=== PATIENT | male | born 1965 | race Caucasian/White ===

== ENCOUNTER 2017-05-11 10:41 | Inpatient (IN) | payer BC ==
[2017-05-11 11:35] LABS: #Eosinphils 0.1 thou/uL (0.0-0.7); #Lymphocytes 2.1 thou/uL (1.20-3.40); #Neutrophils 12.7 thou/uL (1.40-6.50); %Basophils 0.3 % (0.0-1.0); %Eosinophils 0.6 % (0.0-10.0); %Lymphocytes 13.1 % (21.0-51.0); %Monocytes 6.5 % (0.0-10.0); Hematocrit 54.4 % (42.0-52.0); Mean Platelet Volume 8.1 fL (7.4-10.4); Red Blood Cell (RBC) Count 6.12 mill/uL (4.70-6.10); White Blood Cell (WBC) Count 15.9 thou/uL (4.8-10.8)
[2017-05-11 11:41] LABS: Prothrombin Time 13.2 SEC (12.0-14.7)
[2017-05-11 11:57] LABS: ALT (SGPT) 26 U/L (8-55); AST (SGOT) 18 U/L (5-34); Alkaline Phosphatase 106 U/L (40-150); Anion Gap 16 mmol/L (10-20); BUN (Urea Nitrogen) 15 mg/dL (8.4-25.7); Bilirubin, Total 0.7 mg/dL (0.2-1.2); Calc. Creatinine Clearance 0 mL/min (70-130); Calcium 9.7 mg/dL (7.8-10.44); Carbon Dioxide 22 mmol/L (22-29); Chloride 96 mmol/L (98-107); Estimated GFR-MDRD Greater than 90; Globulin 3.7 g/dL (2.4-3.5); Protein, Total 7.6 g/dL (6.0-8.3)
[2017-05-11] MEDS ORDERED: Morphine 4 MG/ML VIAL ONE (12:36)
[2017-05-11] MEDS ORDERED: Water For Inject, Bacteriostat 30 ML ONE (12:36)
[2017-05-11] MEDS ORDERED: methylPREDNISolone Sod Succ/PF 125 MG/2 ML VIAL ONE (12:36)
[2017-05-11] MEDS ORDERED: metroNIDAZOLE 500 MG/100 ML BAG ONE (12:40)
[2017-05-11] MEDS ORDERED: Ondansetron HCl/PF 4 MG/2 ML Vial ONE (12:50)
[2017-05-11] MEDS ORDERED: Ondansetron HCl/PF 4 MG/2 ML Vial IVP PRN (13:46)
[2017-05-11] MEDS ORDERED: Ondansetron ODT 4 MG TAB PO PRN (13:47)
[2017-05-11] MEDS ORDERED: Acetaminophen 325 MG TAB PO PRN (13:47)
[2017-05-11] MEDS ORDERED: Sodium Chloride 0.9% 1,000 ML IV SCH (14:00)
--- NOTE | 2017-05-11 15:41 | CT ---
CT ABDOMEN AND PELVIS WITH IV CONTRAST 05/11/17 HISTORY: Diffuse abdominal pain and palpable skin rash. Symptoms have been present for four days. Patient also reports joint swelling and joint pain. FINDINGS: The lung bases, liver, spleen, pancreas, bilateral adrenal glands, left kidney, and partially distend ed urinary bladder demonstrate a normal CT appearance. There is an exophytic 12 mm hypodense lesion of the inferior pole right kidney demonstrating fluid at tenuation consistent with a cyst. Minimal vascular calcifications are seen in the abdominal aorta. There is evidence of a circumaortic left renal vein. The appendix is visualized and normal in caliber. There is inflammatory stranding seen adjacent to the distal ileum as well as a small amount of fluid in this region as well. The distal ileum/terminal ileum also appears mildly thickened. There is no fluid collection identified. No free intraperitoneal gas is noted. There is colonic diverticulosis present. IMPRESSION: 1. Inflammatory stranding and small amount of fluid adjacent to loops of the distal ileum with w hat appears to be mild thickening involving the most distal as well as terminal ileum. Findings may b e related to either infectious or inflammatory process. Followup evaluation is suggested. 2. Colonic diverticulosis. 3. No CT evidence of appendicitis. POS: ZULEMA
[2017-05-11 15:45] VITALS: BMI 31.5
[2017-05-11 15:54] LABS: Bilirubin Negative (Negative); Blood, Urine Negative (Negative); Glucose, Urine (Dipstick) Negative (Negative); Ketone, Urine 15 mg/dL (Negative); Nitrite Negative (Negative); Protein, Urine (Dipstick) Trace mg/dL (Neg-Trace); Urobilinogen 0.2 mg/dL (0.2-1.0)
[2017-05-11 15:57] LABS: Bacteria/HPF None Seen HPF (None Seen); Hyaline Casts/LPF 0-3 HYALINE CAST LPF (0-3 Hyaline); RBC/HPF 0-3 HPF (0-3); Squamous Epithelial None Seen HPF (0-3); WBC/HPF 0-3 HPF (0-3)
[2017-05-11 16:06] LABS: Osmolality, Urine 378 mOsm/kg (300-900)
[2017-05-11 16:11] LABS: Sodium, Urine Less than 20 mmol/L (Not Available)
[2017-05-11] MEDS ORDERED: ISOVUE-370 76%-LOCM 1 ML ONE (17:09)
--- NOTE | 2017-05-11 17:28 | CON ---
DATE OF CONSULTATION: 05/11/2017 GI INPATIENT CONSULTATION REQUESTING PHYSICIAN: Farzad Pineda MD. REASON FOR CONSULTATION: Terminal ileitis. HISTORY OF PRESENT ILLNESS: Oj Serrano is a 52-year-old man with a history of diabetes, hypertensi on, and hyperlipidemia. He denies any prior gastrointestinal history and has no known family history of gastrointestinal malignancy or inflammatory bowel disease. He has no chronic gastrointestinal sy mptoms. He states that about a week ago, he started having generalized abdominal pain associated wit h nausea and dry heaves. He also started having bowel movements which are loose and watery and incre ased in frequency up to 8 or 10 times per day. This has persisted over the past week. Around the sa me time, he developed a rash under the axilla and was evidently put on Bactrim for this, this was abo ut 4 days ago, but then 3 days ago, he developed a severe papular and somewhat pruritic rash over the extremities and his trunk. He presented to the emergency department due to all of these symptoms to day. Laboratory studies show an elevated CRP to 10. FOBT is negative, but he does have a leukocytos is to 15.[address] abdomen and pelvis demonstrates thickening and stranding as well as mucosal edema in the distal ileum and terminal ileum with no associated fluid collection. He is admitted to the [facility] now, started on ciprofloxacin and Flagyl. We are consulted due to the appearance of terminal ileitis on the CT scan. The patient has never undergone colonoscopy. REVIEW OF SYSTEMS: Full review of systems including constitutional, head, eyes, ears, nose, throat, GI, , cardiovascular, respiratory, musculoskeletal, and neurologic systems is negative except as no jori in the HPI. PAST MEDICAL HISTORY: Diabetes, hypertension, hyperlipidemia, depression. ALLERGIES: Possible allergy to BACTRIM, currently being worked up. OUTPATIENT MEDICATIONS: Atorvastatin, metformin, metoprolol, Farxiga, benazepril, amlodipine. INPATIENT MEDICATIONS: Ciprofloxacin IV, Flagyl IV, Zofran p.r.n., Tylenol p.r.n. SOCIAL HISTORY: He smokes 1 pack cigarettes per day. Alcohol use is social. No drug use. FAMILY HISTORY: No known gastrointestinal malignancy or inflammatory bowel disease. PHYSICAL EXAMINATION: VITAL SIGNS: Temperature 98.3, pulse 97, blood pressure 131/98, 95% oxygen saturation on room air. GENERAL: A 52-year-old man lying in bed comfortably, in no acute distress. SKIN: He has a quite striking purpuric rash to all of the extremities and to the lower trunk, no jau ndice. EYES: No scleral icterus. Extraocular movements are intact. ENT: Mucous membranes moist, no oral lesions. LYMPH: No submandibular or supraclavicular lymphadenopathy. THYROID: Nontender to palpation. HEART: Regular rate and rhythm. LUNGS: Clear to auscultation bilaterally. ABDOMEN: Bowel sounds present, soft. Some mild tenderness to palpation diffusely, but no guarding o r rebound tenderness. EXTREMITIES: No peripheral edema. VESSELS: Radial pulses 2+ bilaterally. NEUROLOGICAL: Cranial nerves II through XII intact bilaterally. No focal deficits. LABORATORY STUDIES: WBC 15.9, hemoglobin 18.5, platelets 226. INR 1.0. BUN 15, creatinine 0.87, so dium 129, potassium 4.7, glucose 136. CRP elevated at 10. LFTs all normal with total bilirubin 0.7, alkaline phosphatase 106, AST 18, ALT 26, albumin 3.9. IMAGING STUDIES: CT of the abdomen and pelvis demonstrated normal-appearing liver, spleen, pancreas, and appendix. There are some colonic diverticulosis and a right renal cyst. There is thickening, s tranding, and mucosal edema of the distal ileum and terminal ileum with no associated fluid collectio n thought to represent infectious versus inflammatory enteritis. ASSESSMENT AND PLAN: 1. Ileitis, based on CT scan. 2. Generalized abdominal pain for the past week. 3. Acute diarrhea for the past week. 4. Generalized purpuric rash, possibly drug reaction. This is an interesting case. From what the p atient explains to me, it seems that his abdominal pain did start a few days prior to his having star jori the Bactrim, so I cannot really attribute this ileitis to a reaction to the Bactrim. However, it may be related to some kind of underlying rheumatologic or autoimmune disorder such as Henoch-Schonl ein purpura. This is being worked up by the primary team. Leaving the differential for an acute ile itis would be infectious cause versus the onset of inflammatory bowel disease, more specifically Croh n's disease. I think further workup is certainly indicated. I have ordered stool studies to try to screen for enteric pathogens. I recommended we go ahead and proceed with planning for a colonoscopy for further investigation in order to obtain terminal ileal examination and biopsies, as well as serv ices for a screening colonoscopy since he has never had one. The patient is very hesitant to conside r any colonoscopic investigation. So at this point, we will await stool studies and see how he does clinically and the results of the rest of his workup. If stool studies are unrevealing and symptoms persist, a colonoscopy would be the next step, either on an inpatient or outpatient basis. Thank you for the consultation. Please call with questions or concerns.
[2017-05-11] MEDS ORDERED: HumaLOG 300 UNITS/3 ML VIAL SC PRN (18:15)
[2017-05-11] MEDS ORDERED: Dextrose 5% in Water 1,000 ML IV PRN (18:15)
[2017-05-11] MEDS ORDERED: Dextrose 50% Abboject 50 ML SYRINGE SLOW IVP PRN (18:15)
--- NOTE | 2017-05-11 19:02 | HP-2 ---
CODE STATUS: DNR/DNI. PRIMARY CARE PHYSICIAN: Dr. Bey. ATTENDING: Dr. Heck. RESIDENT: Farzad Pineda M.D. HISTORIAN: The patient. CHIEF COMPLAINT: Rash and abdominal pain. HISTORY OF PRESENT ILLNESS: Oj Serrano is a 52-year-old male with past medical history of type 2 d iabetes mellitus, hyperlipidemia, hypertension, who presents with a 7-day history of abdominal pain a nd rash. He was seen by his primary care physician about 7 days ago and was diagnosed with axillary folliculitis and was given Bactrim. After he took the Bactrim, he developed the abdominal pain and t he itchy painful rash on his forearms. The rash worsened over the next few days and the rash spread to his upper arms, legs, and buttocks. He went back to his primary care doctor a few days after the symptoms began and they stopped the Bactrim and started clindamycin and rifampin. The rash has henrique nued to expand up his arms, legs, and buttocks and low back. The rash has also caused some swelling of his hands and feet. The abdominal pain has been located mostly in the central abdomen with no rad iation and he has had nausea, vomiting and diarrhea with this pain. No fevers or chills. He states that the abdominal pain is constant and rates it as a 7/10. In the ER, he was given ciprofloxacin, m etronidazole, morphine, 1 liter of normal saline at 125 mg of IV Solu-Medrol. PAST MEDICAL HISTORY: 1. Hypertension. 2. Hyperlipidemia. 3. Type 2 diabetes. PAST SURGICAL HISTORY: None. ALLERGIES: No known drug allergies until he started taking Bactrim. Possibly BACTRIM. MEDICATIONS: 1. Metformin 1000 mg p.o. b.i.d. 2. Metoprolol 50 mg p.o. b.i.d. 3. Atorvastatin 10 mg p.o. at bedtime. 4. Farxiga 5 mg p.o. daily. 5. Rifampin 300 mg p.o. b.i.d. 6. Amlodipine 10 mg p.o. daily. 7. Benazepril 40 mg p.o. b.i.d. 8. Clindamycin 300 mg p.o. b.i.d. FAMILY HISTORY: Noncontributory. SOCIAL HISTORY: Smokes 1 pack per day for last 40 years. Socially drinks alcohol and denies any dixon g use. REVIEW OF SYSTEMS: Twelve-point review of systems including general, eyes, ENT, respiratory, CV, GI, , skin, musculoskeletal, neuro, and psych negative with the exception of appetite and sleep change , nausea, vomiting, diarrhea, abdominal pain, increased urinary frequency, rash, lesions, itching and swelling. PHYSICAL EXAMINATION: VITAL SIGNS: Blood pressure 145/104, pulse 89, respiratory rate 20, T-max 97.9, pulse ox 96% on room air, current weight is 111 kilograms. GENERAL: The patient is alert and oriented x3, in no acute distress, well-developed, well-nourished, obese, appropriately interactive. EYES: Pupils are equal, round, and reactive to light and accommodation. Extraocular muscles are int act. Conjunctivae within normal limits. ENT: Tympanic membranes pearly garrett without bulging or erythema. Nasal mucosa and oropharynx within normal limits. No lesions in the oropharynx. NECK: Supple, without lymphadenopathy or thyromegaly. CARDIOVASCULAR: Regular rate and rhythm. No murmurs or gallops. RESPIRATORY: Normal effort, no retractions. LUNGS: Clear to auscultation bilaterally. SKIN: Warm and dry. Erythematous macules and papules located to the forearms, wrists, upper arms, l ower legs, buttocks, lower back, sparing face, upper chest, palms and soles. He had palpable purpura as well. ABDOMEN: Tenderness to palpation especially over the middle of the abdomen. Bowel sounds active x4. No mass or distention. Guarding present. EXTREMITIES: No clubbing, cyanosis or pitting edema. MUSCULOSKELETAL: Structure and tone within normal limits. Full range of motion. NEUROLOGIC: No focal deficits. Sensation within normal limits. PSYCHIATRIC: Appropriate. LABORATORY DATA: White blood cell count 15.9, hemoglobin 18.5, hematocrit 54.4, MCV of 89.9, 79.5% n eutrophils, platelets 226. Sodium 129, potassium 4.7, chloride 96, carbon dioxide 22, BUN 15, creati nine 0.87, glucose 136, calcium 9.7, total protein 7.6, albumin 3.9, total bilirubin 0.7, AST 18, ALT 26, alkaline phosphatase 106. CRP 10.08, ESR 29, INR 1.0, PT 13.2, PTT 36.0. CT of the abdomen and pelvis. Impression: Inflammatory stranding and small amount of fluid adjacent to loops in the dist al ileum with what appears to be mild thickening involving the most distal as well as terminal ileum. Findings may be related to either infectious or inflammatory process. Colonic diverticulosis and n o CT evidence of appendicitis. ASSESSMENT AND PLAN: A 52-year-old male with rash and abdominal pain. 1. Palpable purpuric rash, possibly secondary to drug reaction from the Bactrim. The patient receiv ed 125 mg of IV methylprednisolone in the ER. We will monitor rash progression and treat symptoms, c hecking urine studies, considering alternative diagnosis for purpura. We will consider skin biopsy a s we progress. Blood cultures pending. Infectious Disease consulted in the ER. 2. Terminal ileitis, likely cause abdominal pain, nausea, vomiting, diarrhea for the last 7 days, po ssibly secondary to vasculitis. The patient received metronidazole and Cipro in the ER. IV fluids a t 150 mL an hour. Clear liquid diet. Zofran p.r.n. Pain management. GI consulted in the ER. 3. Hyponatremia, kidney damage versus hypovolemia. Check urine studies. 4. Hypertension. Resume home medications. Monitor vital signs. 5. Type 2 diabetes. Continue home medications. 6. Hyperlipidemia. Continue home medications. 7. Activity: Ad chuy. 8. Diet: Clear liquids. 9. Prophylaxis. Sequential compression devices. 10. Code status: DNR/DNI. DISPOSITION AND LENGTH OF HOSPITAL STAY: Two days. Symptomatic medications will be provided. History and physical exam as well as management discussed with Dr. Heck.
[2017-05-11] MEDS: Sodium Chloride 0.9% 1,000 ML IV SCH ×2 (20:24→20:45)
[2017-05-11] MEDS: Atorvastatin Calcium 10 MG TAB PO SCH (20:25)
[2017-05-11] MEDS: Metoprolol Tartrate 50 MG TAB PO SCH (20:27)
[2017-05-11] MEDS: Ibuprofen 800 MG TAB PO PRN (20:38)
[2017-05-11] MEDS ORDERED: metroNIDAZOLE 500 MG in Premix Bag 1 BAG IVPB SCH (21:00)
[2017-05-11] MEDS ORDERED: metFORMIN XR 500 MG TAB PO SCH (21:00)
[2017-05-12] MEDS: Acetaminophen 325 MG TAB PO PRN ×2 (01:05→18:35)
[2017-05-12] MEDS: Sodium Chloride 0.9% 1,000 ML IV SCH ×4 (03:32→23:20)
[2017-05-12] MEDS: Ibuprofen 800 MG TAB PO PRN ×3 (05:26→20:59)
[2017-05-12 06:23] LABS: #Basophils 0.1 thou/uL (0.0-0.2); #Eosinphils 0.2 thou/uL (0.0-0.7); #Lymphocytes 2.7 thou/uL (1.20-3.40); #Monocytes 0.9 thou/uL (0.11-0.59); #Neutrophils 9.2 thou/uL (1.40-6.50); %Basophils 0.5 % (0.0-1.0); %Eosinophils 1.2 % (0.0-10.0); %Lymphocytes 20.9 % (21.0-51.0); %Monocytes 6.6 % (0.0-10.0); Hematocrit 49.6 % (42.0-52.0); Mean Platelet Volume 8.3 fL (7.4-10.4)
[2017-05-12] MEDS: Ondansetron ODT 4 MG TAB PO PRN (06:24)
[2017-05-12 06:42] LABS: Anion Gap 11 mmol/L (10-20); BUN (Urea Nitrogen) 12 mg/dL (8.4-25.7); Calc. Creatinine Clearance 162 mL/min (70-130); Carbon Dioxide 24 mmol/L (22-29); Chloride 101 mmol/L (98-107); Estimated GFR-MDRD Greater than 90
--- NOTE | 2017-05-12 07:08 | ADD-HP ---
DATE OF SERVICE: 05/11/2017 CHIEF COMPLAINT: Abdominal pain. HISTORY OF PRESENT ILLNESS: The patient is a 52-year-old male with a past medical history of hypertension, hyperlipidemia, and type 2 diabetes, who presented with this week-long history of ab dominal pain. The patient about 7 days ago went to her primary care physician and was given Bactrim for axillary folliculitis. It sounds like his abdominal pain preceded this event. Within a day or 2 of the patient starting on Bactrim, he developed a purpuric rash which started spreading over most o f his body including arms, legs, buttocks, and part of the back. The patient went back to his [facility] physician and Bactrim was stopped and the patient was then put on clindamycin and rifampin. T he patient notes that the folliculitis has resolved. His abdominal pain has persisted. He has also had nausea, vomiting, and diarrhea with 8-10 stools per day. The patient presented to the ER where quyen rutledge had a CT of the abdomen and pelvis suggestive of terminal ileitis. The patient was given Cipro and Flagyl as well as IV fluids and given a dose of IV Solu-Medrol for the rash. Dr. Ann with [facility] has sadia willis consulted and recommended colonoscopy, though the patient is resistant to this at this time. Inf ectious Disease was also consulted in the ER and their evaluation is pending. The patient is very co ncerned about not being able to eat but states that he has not really eaten for about a week. He was given a liquid diet and is very upset by this. I explained to him that due to the inflammation in h is colon, it was important that we allow it to have time to rest and allow the antibiotics time to wo rk, because of this we want him to not eat. He has been given IV fluids as well as IV antibiotics. It should be noted that the patient had a white blood cell count of 15.9 and hemoglobin of 18.5. He was hyponatremic at 129 and blood sugar was 136. CRP was elevated at 10.08. Stool occult blood was negative. The patient is being admitted for terminal ileitis as well as palpable purpura. He also h as hyponatremia, type 2 diabetes, and the additional diagnoses that were listed in Dr. Pineda's dictat ion. We will continue the patient on IV antibiotics. We will give fluids and we are ordering stool studies to help determine the etiology of his hyponatremia as well as urine studies to help determine the etiology of his rash. We appreciate Dr. Ann's recommendations. Stool studies are pending at t his time. The patient's oral hypoglycemics will be held as we just had a contrast imaging study and he will be placed on Accu-Cheks and sliding scale insulin. I have personally reviewed the history an d physical and discussed the case with Dr. Pineda. I agree with his documentation except for that men tioned above. I have repeated pertinent portions myself.
[2017-05-12] MEDS: Metoprolol Tartrate 50 MG TAB PO SCH ×2 (07:55→20:58)
[2017-05-12] MEDS: Amlodipine 10 MG TAB PO SCH (07:55)
[2017-05-12] MEDS: metroNIDAZOLE 500 MG in Premix Bag 1 BAG IVPB SCH ×3 (07:55→18:42)
[2017-05-12] MEDS ORDERED: Non-Formulary Item 1 EACH (Dapagliflozin Propanediol [Farxiga] 1 TAB) PO SCH (09:00)
--- NOTE | 2017-05-12 10:22 | PDOC.FM ---
- Subjective Subjective: Patient doing fine overnight. Denies CP, SOB, weakness. Endorses BM this morning and continues to have abd pain. Also had nausea overnight which improved with zofran. - Objective MAR Reviewed: Yes Vital Signs & Weight: Vital Signs (12 hours) Temp Pulse Resp BP BP BP Pulse Ox 05/12/17 08:00 97.5 F L 65 22 H 156/94 H 98 05/12/17 07:55 68 124/82 05/12/17 04:00 97.6 F 68 20 124/82 94 L 05/12/17 00:21 97.6 F 72 20 104/64 94 L Weight Weight 111.357 kg I&O: 05/11/17 05/12/17 05/13/17 06:59 06:59 06:59 Intake Total 2100 Output Total 750 Balance 1350 Result Diagrams: 05/12/17 05:57 05/12/17 05:57 <Edmond Monzon - Last Filed: 05/12/17 10:16> - Objective Vital Signs & Weight: Vital Signs (12 hours) Temp Pulse Resp BP BP BP Pulse Ox 05/12/17 08:00 97.5 F L 65 22 H 156/94 H 98 05/12/17 07:55 68 124/82 05/12/17 04:00 97.6 F 68 20 124/82 94 L Weight Weight 111.357 kg I&O: 05/11/17 05/12/17 05/13/17 06:59 06:59 06:59 Intake Total 2100 Output Total 750 Balance 1350 Result Diagrams: 05/12/17 05:57 05/12/17 05:57 <Abbi Heck - Last Filed: 05/12/17 15:37> Phys Exam - Physical Examination Constitutional: NAD HEENT: PERRLA, moist MMs, oral pharynx no lesions Neck: no JVD, full ROM Respiratory: no wheezing, clear to auscultation bilateral Cardiovascular: RRR, no significant murmur Gastrointestinal: soft, positive bowel sounds Musculoskeletal: no edema, pulses present Neurological: normal sensation, moves all 4 limbs Psychiatric: normal affect, A&O x 3 Deviation from normal: diffuse full body erythematous papules <Edmond Monzon - Last Filed: 05/12/17 10:16> Dx/Plan (1) Terminal ileitis Code(s): K50.00 - CROHN'S DISEASE OF SMALL INTESTINE WITHOUT COMPLICATIONS Status: Acute Plan: Stool studies pending, FOBT negative Dr. Ann consulted, recs greatly appreciated Patient resistant to colonoscopy continue with mi kahn at this time (2) Palpable purpura Code(s): D69.2 - OTHER NONTHROMBOCYTOPENIC PURPURA Status: Acute Plan: received methylprednisolone in ER, will continue to monitor and possibly repeat administration (3) Drug-induced skin rash Code(s): L27.0 - GEN SKIN ERUPTION DUE TO DRUGS AND MEDS TAKEN INTERNALLY Status: Acute (4) Hyponatremia Code(s): E87.1 - HYPO-OSMOLALITY AND HYPONATREMIA Status: Acute (5) Folliculitis of axilla Code(s): L73.9 - FOLLICULAR DISORDER, UNSPECIFIED Status: Acute Plan: improved despite not taking clinda/rifampin he was given in outpatient setting (6) Leukocytosis Code(s): D72.829 - ELEVATED WHITE BLOOD CELL COUNT, UNSPECIFIED Status: Acute Plan: improved, Bld Cx positive for gm positive rods in 1 out of 2 samples will start on vancomycin until further results return <Edmond Monzon - Last Filed: 05/12/17 10:16> Attending Addendum - Attending Addendum I personally evaluated the patient and discussed the management with Dr. Monzon. I agree with the History, Examination, Assessment and Plan documented above with any addition or exceptions noted below. The patient had more nausea, abdominal pain and diarrhea overnight. We discussed the importance of continued IV antibiotics and liquid diet. We also advised that a colonoscopy is needed as Dr. Ann recommended. 1/2 blood cultures is positive for gram positive rods. Waiting final sensitivities. <Abbi Heck - Last Filed: 05/12/17 15:37>
--- NOTE | 2017-05-12 12:51 | PRG ---
DATE OF SERVICE: 05/12/2017 GI INPATIENT DAILY PROGRESS NOTE SUBJECTIVE: Mr. Serrano has continued to have periumbilical abdominal pain. He has had only one sarita l movement today and it was loose and dark. Stool studies have not shown any enteric pathogens. He has had some nausea and some dry heaves this morning. No other complaints. OBJECTIVE: VITAL SIGNS: Temperature 97.5, pulse 65, blood pressure 156/94, 98% oxygen saturation on room air. GENERAL: No acute distress. HEART: Regular rate and rhythm. LUNGS: Clear to auscultation bilaterally. ABDOMEN: Bowel sounds present, soft, tender to palpation in the periumbilical area. No guarding, re bound tenderness. EXTREMITIES: No peripheral edema. LABORATORY STUDIES: WBC 13.0, hemoglobin 16.9, platelets 216. INR 1.0, sodium 132, potassium 4.1, B UN 12, creatinine 0.82. Stool studies show negative for Campylobacter, negative Shiga toxin, negativ e Giardia and cryptosporidium, negative C. difficile, elevated fecal lactoferrin, negative stool occu lt blood. IMPRESSION AND PLAN: 1. Ileitis, unclear etiology. 2. Generalized and periumbilical abdominal pain. 3. Diarrhea. I again discussed with the patient that the next step in the workup would be colonoscopy to try to ge t a good examination of the ileum. Primary differential would be onset of Crohn disease versus infec tious enteritis versus some kind of vasculitis given the weird skin rash. He finely agrees to colono scopy. We will plan for the procedure tomorrow morning after bowel preparation tonight. Further rec ommendations following colonoscopy.
[2017-05-12] MEDS ORDERED: Famotidine 20 MG TAB PO SCH (13:15)
[2017-05-12] MEDS: Vancomycin HCl 1.75 GM, Admixture Fee 1 EACH in Sodium Chloride 0.9% 500 ML IVPB SCH ×2 (13:20→23:18)
--- NOTE | 2017-05-12 16:12 | CON ---
DATE OF CONSULTATION: 05/12/2017 REASON FOR CONSULTATION: Skin rash and abdominal pain. HISTORY OF PRESENT ILLNESS: A 52-year-old who has a history of type 2 diabetes mellitus and hyperten hortensia. About a week and half before admission developed what he describes as little areas of pustules in the right axilla some on the left as well. He also noticed pain in the abdominal area which he d escribed as diffuse, fairly intense. On Saturday, approximately 5 days before admission, he saw his ysician assistant teacher and was prescribed Bactrim for the axillary lesions. Two days later, he developed diffuse purpuric rash, he also noticed diarrhea which was quite profuse, therefore, he has stopped th e Bactrim and was prescribed clindamycin and rifampin, which he never took. He also noticed arthralg ias in hands and feet, which hindered ambulation. He persisted with some abdominal pain. No fever, chills or headaches. No visual symptoms, sore throat, odynophagia, dysphagia. No vomiting, hemateme sis, melena or hematochezia. No cough or sputum production or dyspnea. No chest pain. No genitouri nary symptoms. No neurological symptoms. PAST MEDICAL HISTORY: Hypertension, hyperlipidemia, type 2 diabetes. ALLERGIES: No reported allergies until this event. PRIOR MEDICATIONS: Metformin; metoprolol; Lipitor; Farxiga; rifampin and clindamycin that he was not taking, never filled these 2 medications; Norvasc; and benazepril. FAMILY HISTORY: Noncontributory. SOCIAL HISTORY: Current smoker. 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 No alcoholic beverage use o f significant nature. PHYSICAL EXAMINATION: VITAL SIGNS: T-max 98.2, blood pressure 150/94, pulse 65, respirations 20-22, O2 sat 98%. SKIN: Shows diffuse, nonpalpable purpuric lesions scattered through the body, one of them in the lef t hand with sore a targetoid feature. He also has the residual from the axillary eruption kind of no dular shaped small less than 0.3 cm and a number of 3-5 in each axilla. The patient has a peripheral IV access. No lymphadenopathy. HEENT: Ocular movements are conjugate. Sclerae White. Patient has artificial dentures. Oral cavit y normal. NECK: Supple. No jugular venous distention or carotid bruits, no thyromegaly. LUNGS: Symmetric, clear breath sounds. HEART: S1, S2, regular rate. No S3 or S4, no murmurs. ABDOMEN: Not distended with mild to moderate tenderness in the right lower quadrant. Bowel sounds a re present, no ascites, no organomegaly or bladder distention. GENITOURINARY: No genital abnormalities. EXTREMITIES: Some tenderness on range of motion of knees and ankles. Pulses are 1+ in dorsalis pedi s. Plantar responses are flexure. NEUROLOGIC: Cognitive function appears to be intact. LABORATORY DATA: White cell count 15.9, hemoglobin of 18, MCV 88, and platelets 226 with 79% neutrop hils. INR 1.0. Sodium 129 and 132, creatinine 0.82. Liver profile normal. Albumin 3.9, CRP 10.8, bilirubin 0.7. Urinalysis was not remarkable except for ketones. Two blood cultures with gram posit anthony eliecer identified. C. diff negative. Both antigen and toxin and Shiga toxin, Giardia lamblia, cryp tosporidium negative. IMAGING STUDIES: We have an abdomen and pelvis CT from yesterday and this demonstrated normal lung b ases, cystic kidney lesion, inflammatory stranding adjacent to the distal ileum with small amount of fluid in this region. ASSESSMENT: 1. Diabetes type 2. 2. Hypertension. 3. Chronic smoking. 4. Papular lesions in the axillary region. 5. Purpuric lesions consistent with leukocytoclastic vasculitis, distributed through appendicular sk in and truncal skin structures. 6. Inflammatory abdominal process consistent with ileitis. DISCUSSION: Differential diagnosis includes Henoch-Schonlein purpura with ileitis versus Crohn disea se with a leukocytoclastic vasculitis or drug associated leukocytoclastic vasculitis with ileitis is another possibility. Tuberculosis, histoplasmosis, cytomegalovirus infection are less likely. Proba damon will need corticosteroid treatment. The patient may develop kidney involvement and other complic ations. Scheduled for a colonoscopy, I believe tomorrow. Biopsy of the areas of the ileal involveme nt typically would show IgA deposits in the mucosal lesions.
[2017-05-12] MEDS ORDERED: GoLYTELY 4,000 ml Bottle PO SCH (18:00)
[2017-05-12] MEDS: Atorvastatin Calcium 10 MG TAB PO SCH (20:56)
[2017-05-12] MEDS: Famotidine 20 MG TAB PO SCH (20:58)
[2017-05-13] MEDS: Acetaminophen 325 MG TAB PO PRN ×2 (01:10→09:56)
[2017-05-13] MEDS: Ondansetron ODT 4 MG TAB PO PRN (01:11)
[2017-05-13] MEDS: metroNIDAZOLE 500 MG in Premix Bag 1 BAG IVPB SCH ×3 (03:23→17:06)
[2017-05-13] MEDS: Vancomycin HCl 1.75 GM, Admixture Fee 1 EACH in Sodium Chloride 0.9% 500 ML IVPB SCH ×2 (05:30→15:44)
[2017-05-13] MEDS: Sodium Chloride 0.9% 1,000 ML IV SCH ×3 (05:30→19:20)
[2017-05-13] MEDS: Ibuprofen 800 MG TAB PO PRN ×2 (05:32→11:56)
[2017-05-13] MEDS: Metoprolol Tartrate 50 MG TAB PO SCH ×2 (05:38→20:39)
--- NOTE | 2017-05-13 06:53 | PDOC.FM ---
- Subjective Subjective: Patient was seen on team rounds due to colonoscopy this morning. Reports moderate abdominal pain. No n/v. No acute events overnight. Purpuric rash is the same, but folliculitis has resolved. - Objective MAR Reviewed: Yes Vital Signs & Weight: Vital Signs (12 hours) Temp Pulse Resp BP BP Pulse Ox 05/13/17 06:00 97.6 F 66 18 133/82 97 05/12/17 20:56 161/96 H 05/12/17 20:00 97.4 F L 67 16 161/96 H 96 Weight Weight 111.357 kg I&O: 05/11/17 05/12/17 05/13/17 06:59 06:59 06:59 Intake Total 2099 2054 Output Total 750 Balance [id number] Result Diagrams: 05/12/17 05:57 05/12/17 05:57 <Tasia Denny - Last Filed: 05/13/17 18:45> - Objective Vital Signs & Weight: Vital Signs (12 hours) Temp Pulse Resp BP BP Pulse Ox 05/13/17 20:39 133/88 05/13/17 19:11 98.0 F 74 20 133/83 99 Weight Weight 111.357 kg I&O: 05/12/17 05/13/17 05/14/17 06:59 06:59 06:59 Intake Total 2099 2054 Output Total 750 Balance [id number] Result Diagrams: 05/12/17 05:57 05/12/17 05:57 <Brandon Ying - Last Filed: 05/13/17 22:13> Phys Exam - Physical Examination Constitutional: NAD HEENT: moist MMs Respiratory: no wheezing, no rales, no rhonchi, clear to auscultation bilateral Cardiovascular: RRR, no significant murmur Gastrointestinal: soft ttp throughout, liz epigastric area Musculoskeletal: no edema Neurological: moves all 4 limbs Psychiatric: normal affect, A&O x 3 Deviation from normal: nonblanching petichial and purpuric rash on b/l UE and LE (buttock area) <Tasia Denny - Last Filed: 05/13/17 18:45> Dx/Plan - Plan Plan: (1) Terminal ileitis Code(s): K50.00 - CROHN'S DISEASE OF SMALL INTESTINE WITHOUT COMPLICATIONS Status: Acute Plan: Likely a vasculitis type picture: HSP vs. leukocytoclastic vasculitis vs drug reaction vasculitis. Stool studies negative, FOBT negative Dr. Ann did colonoscopy today with multiple ulcerations of ileus, biopsy results pending Prednisone taper continue with flag crissyl at this time (2) Palpable purpura Code(s): D69.2 - OTHER NONTHROMBOCYTOPENIC PURPURA Status: Acute Plan: Stable, continue prednisone (3) Drug-induced skin rash Code(s): L27.0 - GEN SKIN ERUPTION DUE TO DRUGS AND MEDS TAKEN INTERNALLY Status: Acute Possibly, will r/o other causes of rash with ileum biopsy (4) Hyponatremia Code(s): E87.1 - HYPO-OSMOLALITY AND HYPONATREMIA Status: Acute Improving, will recheck tomorrow (5) Folliculitis of axilla Code(s): L73.9 - FOLLICULAR DISORDER, UNSPECIFIED Status: Acute Plan: resolved, despite not taking clinda/rifampin he was given in outpatient setting <Tasia Denny - Last Filed: 05/13/17 18:45> Attending Addendum - Attending Addendum I personally evaluated the patient in his room after returned from colonoscopy, and discussed the management with Dr. Denny. I agree with the History, Examination, Assessment and Plan documented above with any addition or exceptions noted below. He feels better and pain is controlled with meds. Appears to be enjoying his first meal in over 3 days of yogurt, etc. Colonoscopy showed terminal ileitis and mild colitis with a small 7 mm peduncualted polyp in sigmoid snared. Still has mild lower quadrant tenderness. Steroids/IV Solumedrol started by Dr. Ann and continue metronidazole. Monitor clinically and await biopsies from endoscopy. [facility] <Brandon Ying - Last Filed: 05/13/17 22:13>
[2017-05-13] MEDS ORDERED: Promethazine HCl 25 MG/ML VIAL SLOW IVP PRN (08:59)
[2017-05-13] MEDS ORDERED: Ondansetron HCl/PF 4 MG/2 ML Vial IVP PRN (08:59)
[2017-05-13] MEDS ORDERED: Promethazine HCl 25 MG/ML VIAL IM PRN (08:59)
--- NOTE | 2017-05-13 09:13 | OP ---
DATE OF PROCEDURE: 05/13/2017 SURGEON: Brandon Ann M.D. DOG WALKER SURGEON: None. PROCEDURES PERFORMED: Colonoscopy with biopsies and snare polypectomy. INDICATION: Ileitis and chronic diarrhea. Primary differential would be Crohn's disease of the smal l intestine versus a leukocytoclastic vasculitis. MEDICATIONS: See anesthesia record. FINDINGS: After discussion of the risks, benefits and alternatives of the procedure, informed consen t was obtained and witnessed. Pre-endoscopic cardiopulmonary examination was satisfactory. DESCRIPTION OF PROCEDURE: Timeout was performed before sedation was achieved. Sedation was achieved with anesthesia assistance in the endoscopy unit. Digital rectal exam was performed, which was unre markable. A Pentax adult colonoscope was inserted into the anus and passed forward to the cecum in t he usual fashion. The cecal base was identified by the appendiceal orifice as well as the ileocecal valve. The terminal ileum was intubated. The ileal mucosa was severely erythematosus, edematous and friable. There are multiple erosions and ulcerations throughout the terminal ileum to a length of 1 5 cm examined, I could not go any further than 15 cm. There was no discrete stricture visualized in the area examined. Multiple biopsies were obtained from this inflamed portion of terminal ileum for histology. The inflammation extended all the way to the ileocecal valve. The cecum appeared normal. There are couple of small patches of erythema and edema in the ascending colon, which were also bio psied. The remainder of the colonic mucosa appeared normal. There were some diverticula in the sigm oid colon, there is also a 7 mm pedunculated polyp in the sigmoid colon, which was completely removed with hot snare. Retroflexion in the rectum was unremarkable. The colonoscope was completely withdr awn and the patient allowed to recover. The patient tolerated the procedure well. There were no imm ediate post-procedure complications. IMPRESSION: 1. Severe ileitis with ulcerations and edema throughout the terminal ileum to 15 cm examined, biopsi ed for histology. 2. Patchy colitis in the ascending colon, biopsied. 3. Sigmoid diverticulosis. 4. Single sigmoid polyp measuring 7 cm, completely removed with hot snare and retrieved for patholog y. RECOMMENDATIONS: 1. Follow up biopsy results. 2. Full liquid diet, advance as tolerated. 3. I will go ahead and start the patient on IV steroids, Solu-Medrol 40 mg IV q.6 hours.
[2017-05-13] MEDS: Amlodipine 10 MG TAB PO SCH (09:49)
[2017-05-13] MEDS: Famotidine 20 MG TAB PO SCH ×2 (09:50→20:39)
[2017-05-13] MEDS ORDERED: ALPRAZolam 1 MG TAB PO PRN (13:04)
[2017-05-13 13:18] LABS: Vancomycin, Trough 14.4 ug/mL
[2017-05-13] MEDS ORDERED: Propofol 200 MG/20 ML VIAL ONE (14:01)
[2017-05-13] MEDS: metFORMIN 500 MG TAB PO SCH (17:06)
[2017-05-13] MEDS: Atorvastatin Calcium 10 MG TAB PO SCH (20:39)
[2017-05-14] MEDS: metroNIDAZOLE 500 MG in Premix Bag 1 BAG IVPB SCH ×3 (02:40→16:51)
[2017-05-14] MEDS: Sodium Chloride 0.9% 1,000 ML IV SCH ×4 (02:51→23:25)
--- NOTE | 2017-05-14 06:44 | PDOC.FM ---
- Subjective Subjective: Patient reports he feels a little better today. Less abdominal discomfort and rash is improving slightly. No acute events overnight. - Objective MAR Reviewed: Yes Vital Signs & Weight: Vital Signs (12 hours) Temp Pulse Resp BP BP Pulse Ox 05/13/17 20:39 133/88 05/13/17 20:00 98.0 F 74 20 99 05/13/17 19:11 98.0 F 74 20 133/83 99 Weight Weight 111.357 kg I&O: 05/12/17 05/13/17 05/14/17 06:59 06:59 06:59 Intake Total 2099 2054 Output Total 750 Balance 1349 2054 Result Diagrams: 05/12/17 05:57 05/12/17 05:57 <Tasia Denny - Last Filed: 05/14/17 12:10> - Objective Vital Signs & Weight: Vital Signs (12 hours) Temp Pulse Resp BP 05/14/17 08:58 133/88 05/14/17 08:57 133/88 05/14/17 08:00 98.0 F 74 20 Weight Weight 111.357 kg I&O: 05/13/17 05/14/17 05/15/17 06:59 06:59 06:59 Intake Total 2054 Result Diagrams: 05/12/17 05:57 05/12/17 05:57 <Evert Carlos - Last Filed: 05/14/17 17:35> - Objective Vital Signs & Weight: Vital Signs (12 hours) Temp Pulse Resp BP BP Pulse Ox 05/14/17 21:36 97.9 F 68 18 157/94 H 95 05/14/17 20:25 157/94 H 05/14/17 20:00 98.0 F 74 20 95 Weight Weight 111.357 kg I&O: 05/13/17 05/14/17 05/15/17 06:59 06:59 06:59 Intake Total 2054 Result Diagrams: 05/12/17 05:57 05/12/17 05:57 <Brandon Ying - Last Filed: 05/14/17 22:17> Phys Exam - Physical Examination Constitutional: NAD HEENT: moist MMs Respiratory: clear to auscultation bilateral Cardiovascular: RRR, no significant murmur Gastrointestinal: soft, positive bowel sounds ttp in epigastric and LLQ and RLQ Musculoskeletal: no edema Neurological: non-focal, normal sensation, moves all 4 limbs Psychiatric: normal affect Deviation from normal: purpuric rash in UE and LE and along buttocks, improved from yesterday. <Tasia Denny - Last Filed: 05/14/17 12:10> Dx/Plan - Plan Plan: Terminal ileitis Code(s): K50.00 - CROHN'S DISEASE OF SMALL INTESTINE WITHOUT COMPLICATIONS Status: Acute Plan: Likely a vasculitis type picture: HSP vs. leukocytoclastic vasculitis vs drug reaction vasculitis. Stool studies negative, FOBT negative Dr. Ann did colonoscopy yesterday with multiple ulcerations of ileus, biopsy results pending Solumedrol 40mg q6h Continue with cipro, flagyl at this time Palpable purpura Code(s): D69.2 - OTHER NONTHROMBOCYTOPENIC PURPURA Status: Acute Plan: Improved, continue steroid Drug-induced skin rash Code(s): L27.0 - GEN SKIN ERUPTION DUE TO DRUGS AND MEDS TAKEN INTERNALLY Status: Acute Possibly, will r/o other causes of rash with ileum biopsy Hyponatremia Code(s): E87.1 - HYPO-OSMOLALITY AND HYPONATREMIA Status: Acute Improving, will recheck tomorrow <Tasia Denny - Last Filed: 05/14/17 12:10> Attending Addendum - Attending Addendum I personally evaluated the patient and discussed the management with Dr. Denny. I agree with the History, Examination, Assessment and Plan documented above with any addition or exceptions noted below. Rash gradually fading. Afeb. NAD. Abd discomfort persists. Lungs CTA, RRR w/ o Murmur, abd-soft, ND, no HSM. Purpura fading from extremities. Continue current mgt. Ileal biopsy negative. Ischemic colitis noted. Tubular adenoma. Descalate abx's. Await GI recs. <Evert Carlos - Last Filed: 05/14/17 17:35> - Attending Addendum I reviewed and discussed the management with Dr. Denny. Dr. Carlos personally evaluated the patient as noted above. [facility] <Brandon Ying - Last Filed: 05/14/17 22:17>
[2017-05-14] MEDS: Amlodipine 10 MG TAB PO SCH (08:57)
[2017-05-14] MEDS: Metoprolol Tartrate 50 MG TAB PO SCH ×2 (08:57→20:27)
[2017-05-14] MEDS: Famotidine 20 MG TAB PO SCH ×2 (08:58→20:24)
[2017-05-14] MEDS: metFORMIN 500 MG TAB PO SCH ×2 (09:02→16:51)
[2017-05-14] MEDS: Ibuprofen 800 MG TAB PO PRN ×2 (13:46→23:24)
[2017-05-14] MEDS: Atorvastatin Calcium 10 MG TAB PO SCH (20:24)
[2017-05-15] MEDS: metroNIDAZOLE 500 MG in Premix Bag 1 BAG IVPB SCH ×2 (01:29→10:13)
[2017-05-15 04:33] LABS: #Lymphocytes 1.9 thou/uL (1.20-3.40); #Monocytes 0.8 thou/uL (0.11-0.59); #Neutrophils 12.5 thou/uL (1.40-6.50); %Basophils 0.3 % (0.0-1.0); %Eosinophils 0.2 % (0.0-10.0); %Lymphocytes 12.4 % (21.0-51.0); %Monocytes 5.1 % (0.0-10.0); Hematocrit 43.5 % (42.0-52.0); Mean Platelet Volume 8.1 fL (7.4-10.4); Red Blood Cell (RBC) Count 4.85 mill/uL (4.70-6.10); White Blood Cell (WBC) Count 15.2 thou/uL (4.8-10.8)
[2017-05-15] MEDS: Sodium Chloride 0.9% 1,000 ML IV SCH ×3 (04:40→10:13)
[2017-05-15 04:46] LABS: ALT (SGPT) 31 U/L (8-55); AST (SGOT) 20 U/L (5-34); Alkaline Phosphatase 83 U/L (40-150); Anion Gap 11 mmol/L (10-20); BUN (Urea Nitrogen) 13 mg/dL (8.4-25.7); Bilirubin, Total 0.3 mg/dL (0.2-1.2); Calc. Creatinine Clearance 180 mL/min (70-130); Calcium 9.4 mg/dL (7.8-10.44); Carbon Dioxide 26 mmol/L (22-29); Chloride 104 mmol/L (98-107); Estimated GFR-MDRD Greater than 90; Globulin 2.9 g/dL (2.4-3.5); Protein, Total 6.3 g/dL (6.0-8.3)
[2017-05-15] MEDS: Amlodipine 10 MG TAB PO SCH (07:23)
[2017-05-15] MEDS: metFORMIN 500 MG TAB PO SCH (07:23)
[2017-05-15] MEDS: Metoprolol Tartrate 50 MG TAB PO SCH (07:23)
[2017-05-15] MEDS: Famotidine 20 MG TAB PO SCH (07:23)
[2017-05-15 07:47] VITALS: TEMP 97.7
[2017-05-15 11:04] VITALS: BP 143/84
--- NOTE | 2017-05-15 13:28 | ADD-PRG ---
ADDENDUM: 05/15/2017 Please add as an addendum to the note of Dr. Tasia Denny. Mr. Serrano feels much better today. He is still having some lower abdominal discomfort, but is much improved. His rash is dissipating. He po ssibly had ischemic ileitis and a reaction to his sulfa medication. In the event, he has improved wi th intravenous steroids as well as antibiotics and will be discharged later today if cleared by GI. We will mark their recommendations regarding continued use of prednisone.
--- NOTE | 2017-05-15 14:32 | PDOC.FM ---
- Subjective Subjective: Patient doing well this morning. Reports great improvement in rash, but continues to have abdominal pain. No acute events overnight. - Objective MAR Reviewed: Yes Vital Signs & Weight: Vital Signs (12 hours) Temp Pulse Resp BP BP BP BP 05/15/17 11:03 143/84 H 05/15/17 08:00 97.7 F 53 L 16 05/15/17 07:46 97.7 F 53 L 16 162/92 H 05/15/17 07:24 157/94 H 05/15/17 07:23 62 05/15/17 06:00 97.8 F 62 20 156/97 H Pulse Ox 05/15/17 11:03 05/15/17 08:00 05/15/17 07:46 96 05/15/17 07:24 05/15/17 07:23 05/15/17 06:00 95 Weight Weight 111.357 kg I&O: 05/14/17 05/15/17 05/16/17 06:59 06:59 06:59 Intake Total 1960 Balance 1960 Result Diagrams: 05/15/17 03:35 05/15/17 03:35 Phys Exam - Physical Examination Constitutional: NAD HEENT: moist MMs Respiratory: no wheezing, clear to auscultation bilateral Cardiovascular: RRR, no significant murmur Gastrointestinal: soft, non-tender Musculoskeletal: no edema, pulses present Deviation from normal: significantly improved petichial and purpuric rash on UE and LE as well as -: abdomen Dx/Plan (1) Terminal ileitis Code(s): K50.00 - CROHN'S DISEASE OF SMALL INTESTINE WITHOUT COMPLICATIONS Status: Acute (2) Diabetes mellitus Code(s): E11.9 - TYPE 2 DIABETES MELLITUS WITHOUT COMPLICATIONS Status: Chronic (3) Hyperlipidemia Code(s): E78.5 - HYPERLIPIDEMIA, UNSPECIFIED Status: Chronic (4) Hypertension Code(s): I10 - ESSENTIAL (PRIMARY) HYPERTENSION Status: Chronic (5) Tobacco abuse Code(s): Z72.0 - TOBACCO USE Status: Chronic - Plan Plan: Terminal Ileitis Likely a vasculitis type picture: HSP vs. leukocytoclastic vasculitis vs drug reaction vasculitis. Stool studies negative, FOBT negative Ileal ulcerations biopsy shows no granulomatous disease ruling out Chrons disease. Trasition to PO prednisone 40mg taper and discontinue Abx. D/c home with close f/u with Dr. Ann and pcp Dr. Bey Palpable Purpura Improved, continue steroid T2DM Metformin 1000mg BID SSI HTN Benazepril and Amlodipine home meds Tobacco Use Encourage cessation HLD Continue statin
--- NOTE | 2017-05-16 13:55 | DIS-2 ---
DATE OF ADMISSION: 05/11/2017 DATE OF DISCHARGE: 05/15/2017 ADMITTING ATTENDING: Abbi Heck M.D. DISCHARGE ATTENDING: Edgar Goode M.D. RESIDENT: Tasia Denny DO CONSULTATIONS: 1. Dr. Brandon Ann, GI. 2. Dr. Juan Manuel Limon, Infectious Disease. PROCEDURE/IMAGIN. Abdomen and pelvis CT - inflammatory stranding and small amount of fluid adjacent to the loops of the distal ileum as well as mild thickening involving the most distal and terminal ileum and colonic diverticulosis. 2. Colonoscopy with biopsies and snare polypectomy was performed by Dr. Ann. The patient was found to have severe ileitis with ulceration and edema throughout the terminal ileum with biopsies for histology, patchy colitis in the ascending colon biopsied, sigmoid diverticulosis, single sigmoid polyp measuring 7 mm prior removed with hot snare and retrieved for pathology. PRIMARY DIAGNOSES: 1. 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 SECONDARY DIAGNOSES: 1. Type 2 diabetes. 2. Hypertension. 3. Chronic smoking. 4. Hyperlipidemia. DISCHARGE MEDICATIONS: 1. Lipitor (atorvastatin) 10 mg 1 tab p.o. at bedtime. 2. Metformin 500 mg p.o. b.i.d. 3. Amlodipine 10 mg p.o. daily. 4. Benazepril 40 mg p.o. b.i.d. 5. Farxiga 5 mg p.o. daily. 7. Metoprolol tartrate 50 mg p.o. b.i.d. 8. Prednisone taper starting at 40 mg tapering down to 10 mg, changing doses every 5 days from 40 to 30 to 20 to 10. DISCONTINUED MEDICATIONS: None. HISTORY OF PRESENT ILLNESS AND HOSPITAL COURSE: The patient is a 52-year-old male with past medical history of type 2 diabetes, hyperlipidemia, and hypertension who presented with a 7-day history of acute abdominal pain and the rash was seen 7 days prior for axillary folliculitis and was given Bactrim. After he took the Bactrim, he developed abdominal pain and itchy painful rash on his forearm, which worsened over the next few days, it spread to his upper arms, legs and buttocks. The patient did go to PCP and discontinued Bactrim, started clindamycin and rifampin. Rash continued to progress and at the time of evaluation in the ED, he was found to have palpable purpura in the upper and lower extremities, abdomen, and buttocks. Folliculitis was resolved at this time. He was also found to have small petechial rash in between the purpura rash. A CT of the abdomen was performed with the results above. Patient was given prophylactic antibiotics for possible infectious cause with initial mildly elevated WBC of 15. Dr. Ann was consulted for possible ileitis and performed colonoscopy, which confirmed multiple ulcerations in the terminal ileum. Biopsy was taken from ileum and colon and were negative for IBD, dysplasia, or malignancy. At this time, Dr. Limon was consulted for recommendations for treatment. He agreed that the diagnoses could be from Henoch-Schonlein purpura versus leukocytoclastic reaction or drug induced leukocytoclastic reaction with ileitis. Prophylactic Abx were discontinued. He recommended IV steroids. The patient was put on IV steroids for 2 days and rash had disappeared by the time of discharge. The patient's abdominal pain did continue, but had improved greatly. Definitive diagnosis was not made, but patient educated to refrain from taking Bactrim in the future due to possibility of Bactrim causing this episode. Dr. Ann to follow his course of treatment outpatient with followup appointment in 2 weeks. In regards to other chronic medical conditions, home medications were resumed and blood pressure as well as diabetes was well controlled. DISPOSITION: Stable. DISCHARGE INSTRUCTIONS: 1. Location: Home. 2. Diet: Diabetic diet, heart healthy diet with low sodium. 3. Activity: As tolerated. 4. Follow up with PCP, Dr. Bey in 1-[address] Ann in 2 weeks. [facility]
== END 2017-05-15 15:55 | disposition home or self-care (01) | DRG 394 ==
LOC: ERS 10:41 → T4-B 13:24
PROVIDERS: ADMIT Family Medicine; ATTEND Family Medicine
PROC: 0DBB8ZX Excision of Ileum, Via Natural or Artificial Opening Endoscopic, Diagnostic (ICD-10-PCS; principal; 2017-05-13)
PROC: 0DBK8ZX Excision of Ascending Colon, Via Natural or Artificial Opening Endoscopic, Diagnostic (ICD-10-PCS; 2017-05-13)
PROC: 0DBN8ZZ Excision of Sigmoid Colon, Via Natural or Artificial Opening Endoscopic (ICD-10-PCS; 2017-05-13)
DX: K52.1 Toxic gastroenteritis and colitis (principal); K55.8 Other vascular disorders of intestine; K63.3 Ulcer of intestine; D69.0 Allergic purpura; E87.1 Hypo-osmolality and hyponatremia; T37.0X5A Adverse effect of sulfonamides, initial encounter; K57.30 Diverticulosis of large intestine without perforation or abscess without bleeding; K63.5 Polyp of colon; I10 Essential (primary) hypertension; E78.5 Hyperlipidemia, unspecified; E11.9 Type 2 diabetes mellitus without complications; F17.210 Nicotine dependence, cigarettes, uncomplicated; F32.9 Major depressive disorder, single episode, unspecified; L73.9 Follicular disorder, unspecified
CPT/HCPCS: 36415; 36416; 74177; 80048; 80053; 80202; 81001; 82274; 82570; 83630; 83930; 83935; 84300; 85025; 85610; 85652; 85730; 86140; 87015; 87040; 87045; 87046; 87081; 87324; 87328; 87329; 87449; 87899; 88305; 96365; 96375; A4216; J0744; J2270; J2405; J2704; J2920; J2930; J3370; J7050; Q0162

== ENCOUNTER 2017-05-20 02:55 | Emergency (ER) | payer BC ==
[2017-05-20 04:10] LABS: Bilirubin Negative (Negative); Blood, Urine Large (Negative); Glucose, Urine (Dipstick) 500 mg/dL (Negative); Ketone, Urine Negative (Negative); Nitrite Negative (Negative); Protein, Urine (Dipstick) 300 mg/dL (Neg-Trace); Urobilinogen 0.2 mg/dL (0.2-1.0)
[2017-05-20 04:13] LABS: Bacteria/HPF None Seen HPF (None Seen); Hyaline Casts/LPF 0-3 HYALINE CAST LPF (0-3 Hyaline); Squamous Epithelial 0-3 HPF (0-3)
[2017-05-20] MEDS ORDERED: Morphine 4 MG/ML VIAL ONE (04:13)
[2017-05-20] MEDS ORDERED: Ondansetron HCl/PF 4 MG/2 ML Vial ONE (04:13)
[2017-05-20 04:19] LABS: PTT 30.6 SEC (22.9-36.1); Prothrombin Time 12.7 SEC (12.0-14.7)
[2017-05-20 04:26] LABS: ALT (SGPT) 26 U/L (8-55); AST (SGOT) 11 U/L (5-34); Alkaline Phosphatase 85 U/L (40-150); Anion Gap 14 mmol/L (10-20); BUN (Urea Nitrogen) 23 mg/dL (8.4-25.7); Bilirubin, Total 0.5 mg/dL (0.2-1.2); Calc. Creatinine Clearance 0 mL/min (70-130); Calcium 9.8 mg/dL (7.8-10.44); Carbon Dioxide 23 mmol/L (22-29); Chloride 98 mmol/L (98-107); Estimated GFR-MDRD Greater than 90; Globulin 3.1 g/dL (2.4-3.5); Lipase 47 U/L (8-78); Protein, Total 6.9 g/dL (6.0-8.3)
[2017-05-20 04:28] LABS: Hematocrit 52.8 % (42.0-52.0); Mean Platelet Volume 7.1 fL (7.4-10.4); Red Blood Cell (RBC) Count 5.94 mill/uL (4.70-6.10)
[2017-05-20] MEDS ORDERED: Ketorolac Tromethamine 30 MG/ML VIAL ONE (05:07)
[2017-05-20] MEDS ORDERED: methylPREDNISolone Sod Succ/PF 125 MG/2 ML VIAL ONE (05:07)
[2017-05-20 05:08] LABS: White Blood Cell (WBC) Count 32.2 thou/uL (4.8-10.8)
[2017-05-20 05:09] LABS: Band 1 % (5-11); Neutrophil 77 % (42-75)
== END 2017-05-20 06:10 | disposition home or self-care (01) ==
LOC: ERS 02:55
DX: D69.0 Allergic purpura (principal); R10.84 Generalized abdominal pain; E11.9 Type 2 diabetes mellitus without complications; E78.5 Hyperlipidemia, unspecified; I10 Essential (primary) hypertension; F32.9 Major depressive disorder, single episode, unspecified; F17.210 Nicotine dependence, cigarettes, uncomplicated; Z79.899 Other long term (current) drug therapy
CPT/HCPCS: 80053; 81003; 81015; 83690; 85025; 85610; 85652; 85730; 86140; 96374; 96375; 99406; J1885; J2270; J2405; J2930

== ENCOUNTER 2017-07-01 17:14 | Outpatient (CLI) | payer BC ==
[2017-07-01 18:07] LABS: #Basophils 0.1 thou/uL (0.0-0.2); #Eosinphils 0.1 thou/uL (0.0-0.7); #Neutrophils 12.7 thou/uL (1.40-6.50); %Basophils 0.5 % (0.0-1.0); %Eosinophils 0.5 % (0.0-10.0); %Lymphocytes 17.9 % (21.0-51.0); %Monocytes 6.1 % (0.0-10.0); Hemoglobin 15.9 g/dL (14.0-18.0); Mean Corpuscular HGB CONC 34.2 g/dL (32.0-36.0); Mean Corpuscular Hemoglobin 31.2 pg (27.0-31.0); Mean Corpuscular Volume 91.5 fl (80.0-94.0); Mean Platelet Volume 7.6 fL (7.4-10.4); Platelet Count 221 thou/uL (130-400); RBC Distribution Width 13.2 % (11.5-14.5); White Blood Cell (WBC) Count 16.9 thou/uL (4.8-10.8)
[2017-07-01 18:33] LABS: ALT (SGPT) 29 U/L (8-55); AST (SGOT) 17 U/L (5-34); Albumin 2.9 g/dL (3.5-5.0); Alkaline Phosphatase 80 U/L (40-150); Anion Gap 14 mmol/L (10-20); BUN (Urea Nitrogen) 22 mg/dL (8.4-25.7); Bilirubin, Total 0.5 mg/dL (0.2-1.2); Calc. Creatinine Clearance 0 mL/min (70-130); Calcium 9.2 mg/dL (7.8-10.44); Carbon Dioxide 23 mmol/L (22-29); Chloride 99 mmol/L (98-107); Estimated GFR-MDRD Greater than 90; Globulin 2.9 g/dL (2.4-3.5); Glucose 216 mg/dL (70-105); Potassium 4.3 mmol/L (3.5-5.1); Protein, Total 5.8 g/dL (6.0-8.3); Sodium 132 mmol/L (136-145)
== END 2017-07-01 17:15 | disposition home or self-care (01) ==
LOC: LABBT 17:14
PROVIDERS: ATTEND Surgery
DX: Z01.818 Encounter for other preprocedural examination (principal); L02.411 Cutaneous abscess of right axilla
CPT/HCPCS: 80053; 85025

== ENCOUNTER 2017-07-02 07:06 | Inpatient (IN) | payer BC ==
[2017-07-02] MEDS ORDERED: Bupivacaine/Epinephrine 0.25% 30 ML VIAL ONE (08:14)
[2017-07-02] MEDS ORDERED: Fentanyl 100 MCG/2 ML VIAL ONE ×4 (08:23→10:08)
[2017-07-02] MEDS ORDERED: Ketorolac Tromethamine 30 MG/ML VIAL IVP PRN (09:54)
[2017-07-02] MEDS ORDERED: Fentanyl 5000 MCG/250 ML CADD IVPB PRN (09:54)
[2017-07-02] MEDS ORDERED: Promethazine HCl 25 MG/ML VIAL IM PRN ×2 (09:54→11:18)
[2017-07-02] MEDS ORDERED: Naloxone HCl 0.4 mg/ml Vial IV PRN (09:54)
[2017-07-02] MEDS ORDERED: diphenhydrAMINE 50 MG/ML VIAL IM PRN (09:54)
[2017-07-02] MEDS ORDERED: diphenhydrAMINE 25 MG CAP PO PRN (09:54)
[2017-07-02] MEDS ORDERED: diphenhydrAMINE 50 MG/ML VIAL IVP PRN (09:54)
[2017-07-02] MEDS ORDERED: Ondansetron HCl/PF 4 MG/2 ML Vial IVP PRN ×4 (09:54→11:18)
[2017-07-02] MEDS ORDERED: Zolpidem Tartrate 5 MG TAB PO PRN (09:54)
[2017-07-02] MEDS ORDERED: Non-Formulary Medication 1 EACH PO PRN (09:56)
[2017-07-02] MEDS ORDERED: Promethazine HCl 25 MG/ML VIAL IM/IV PRN (09:56)
[2017-07-02] MEDS ORDERED: Morphine 4 MG/ML Carpuject SLOW IVP PRN (09:56)
[2017-07-02] MEDS ORDERED: Morphine Sulfate 2 MG/ML SYRINGE SLOW IVP PRN (09:56)
[2017-07-02] MEDS ORDERED: Promethazine HCl 25 MG/ML VIAL SLOW IVP PRN (09:59)
[2017-07-02] MEDS ORDERED: HYDROcodone/Acetaminophen 5/325 mg Tablet PO PRN ×2 (09:59)
[2017-07-02] MEDS ORDERED: Fentanyl 100 MCG/2 ML VIAL SLOW IVP PRN (09:59)
[2017-07-02] MEDS ORDERED: Communication Order-Pharmacy FS SCH (10:00)
[2017-07-02] MEDS ORDERED: Promethazine HCl 25 MG/ML VIAL ONE (10:14)
[2017-07-02] MEDS ORDERED: Glycopyrrolate 0.2 MG/ML 5 ML SYRINGE ONE (11:15)
[2017-07-02] MEDS ORDERED: Ondansetron HCl/PF 4 MG/2 ML Vial ONE (11:15)
[2017-07-02] MEDS ORDERED: PROPOFOL 200 MG/20 ML VIAL ONE (11:15)
[2017-07-02] MEDS ORDERED: Lidocaine 1% PF 5 ML VIAL ONE (11:15)
[2017-07-02] MEDS ORDERED: Hydrocortisone Sod Succ/PF 100 mg/2 ml Vial ONE (11:15)
[2017-07-02] MEDS ORDERED: Dextrose 5% in Water 1,000 ML IV PRN (11:18)
[2017-07-02] MEDS ORDERED: Lorazepam 2 MG/ML VIAL SLOW IVP PRN (11:18)
[2017-07-02] MEDS ORDERED: Ondansetron ODT 4 MG TAB PO PRN (11:18)
[2017-07-02] MEDS ORDERED: hydrALAZINE 20 MG/ML VIAL SLOW IVP PRN (11:18)
[2017-07-02] MEDS ORDERED: Dextrose 50% Abboject 50 ML SYRINGE SLOW IVP PRN (11:18)
[2017-07-02] MEDS ORDERED: FLU VACC QS2017-18 36 mo. & older 0.5 ML SYRINGE IM ONE (12:45)
--- NOTE | 2017-07-02 12:47 | PDOC.EVN ---
Event Note - Event Note Event Note: Called by surgical floor for Mr Serrano being verbally abusive and physically intimidating towards his nurse. He fired his first nurse over his anger over my having ordered a diabetic diet. I explained to him that his behavior is unacceptable and he would not continue to be verbally abusive and curse at the hospital staff or he would be discharged with traditional wet to dry packing. He voiced understanding and showed remorse for his behavior. His daughter is at the bedside.
[2017-07-02] MEDS: ALPRAZolam 1 MG TAB PO PRN (12:58)
[2017-07-02] MEDS: Sodium Chloride 0.9% 1,000 ML IV SCH (12:59)
[2017-07-02] MEDS ORDERED: Vancomycin HCl 1.5 GM in Sodium Chloride 0.9% 250 ML 300 ML IVPB SCH (13:00)
[2017-07-02] MEDS: Vancomycin HCl 1.5 GM in Sodium Chloride 0.9% 250 ML 300 ML IVPB SCH (15:37)
[2017-07-02] MEDS: methylPREDNISolone 4 mg Tablet PO SCH ×2 (16:53→21:45)
[2017-07-02] MEDS: HumaLOG 300 UNITS/3 ML VIAL SC PRN (16:57)
[2017-07-02] MEDS ORDERED: Linezolid 600 MG in Premix Bag 1 BAG IVPB SCH (21:00)
[2017-07-02] MEDS: Atorvastatin Calcium 10 MG TAB PO SCH (21:43)
[2017-07-02] MEDS: Metoprolol Tartrate 50 MG TAB PO SCH (21:43)
[2017-07-02] MEDS: Famotidine 20 MG TAB PO SCH (21:43)
[2017-07-03] MEDS: Vancomycin HCl 1.5 GM in Sodium Chloride 0.9% 250 ML 300 ML IVPB SCH ×4 (00:49→22:35)
[2017-07-03] MEDS: Sodium Chloride 0.9% 1,000 ML IV SCH (04:17)
[2017-07-03] MEDS: methylPREDNISolone 4 mg Tablet PO SCH ×2 (08:11→15:30)
[2017-07-03] MEDS: Famotidine 20 MG TAB PO SCH ×2 (08:12→22:32)
[2017-07-03] MEDS: Metoprolol Tartrate 50 MG TAB PO SCH ×2 (08:14→22:34)
[2017-07-03] MEDS: Folic Acid 1 MG TAB PO SCH (08:14)
[2017-07-03] MEDS: Amlodipine 10 MG TAB PO SCH (08:14)
--- NOTE | 2017-07-03 08:44 | PDOC.GSPN ---
Surgery Progress Note: Subj - Subjective Narrative: Pain controlled on [employer] CROPS. Complaining of the TID steroids making him feel bad. He had already cut down to just once a day at home. Surgery Progress Note: Obj - Vital signs Vital signs: Vital Signs - Most Recent Temp Pulse Resp BP Pulse Ox 97.8 F 68 20 129/82 99 07/03/17 08:37 07/03/17 08:37 07/03/17 08:37 07/03/17 08:37 07/03/17 08:37 - Physical Exam General: no distress Respiratory: clear to auscultation Abdomen: non tender Wound: wound vac (in place) Surgery Progress Note: Results - Labs Lab results: Laboratory Results POC Glucose 159 mg/dL (70-110) H 07/03/17 05:56 Surgery Progress Note: A/P - Problem (1) Axillary abscess Current Visit: Yes Code(s): L02.419 - CUTANEOUS ABSCESS OF LIMB, UNSPECIFIED Status: Acute Assessment and Plan: Await cultures. On vancomycin. Wound vac change tomorrow. Hopefully wound vac will get approved. (2) Diabetes mellitus Current Visit: Yes Code(s): E11.9 - TYPE 2 DIABETES MELLITUS WITHOUT COMPLICATIONS Status: Acute
[2017-07-03] MEDS ORDERED: Sodium Chloride 0.9% 1,000 ML IV SCH (08:46)
[2017-07-03] MEDS ORDERED: methylPREDNISolone 4 mg Tablet PO SCH (09:00)
[2017-07-03] MEDS: fentaNYL Citrate/PF 2,000 MCG in Sodium Chloride 0.9% 60 ML IV PRN (10:16)
[2017-07-03 10:25] VITALS: BMI 32.4
[2017-07-03] MEDS: HumaLOG 300 UNITS/3 ML VIAL SC PRN ×2 (12:56→22:37)
[2017-07-03 15:24] LABS: Vancomycin, Trough 17.7 ug/mL
[2017-07-03] MEDS: Atorvastatin Calcium 10 MG TAB PO SCH (22:31)
--- NOTE | 2017-07-04 00:48 | EKG ---
Test Reason : PREOP Blood Pressure : / mmHG Vent. Rate : 075 BPM Atrial Rate : 075 BPM P-R Int : 152 ms QRS Dur : 094 ms QT Int : 372 ms P-R-T Axes : 043 -28 -04 degrees QTc Int : 415 ms Normal sinus rhythm Possible Inferior infarct , age undetermined When compared with ECG of 04-AUG-1993 04:54, Non-specific change in ST segment in Inferior leads T wave inversion now evident in Inferior leads T wave amplitude has increased in Lateral leads Confirmed by SANDHYA CULLEN, DR. Earl ([id number]) on 07/04/2017 12:47:46 AM Referred By: ALISON Confirmed By:DR. Mady ARTHUR MD
[2017-07-04] MEDS: ALPRAZolam 1 MG TAB PO PRN ×2 (02:18→21:08)
[2017-07-04] MEDS: Folic Acid 1 MG TAB PO SCH (09:00)
[2017-07-04] MEDS: Vancomycin HCl 1.5 GM in Sodium Chloride 0.9% 250 ML 300 ML IVPB SCH ×3 (09:00→23:33)
[2017-07-04] MEDS: Metoprolol Tartrate 50 MG TAB PO SCH ×2 (09:01→21:09)
[2017-07-04] MEDS: Famotidine 20 MG TAB PO SCH ×2 (09:01→21:01)
[2017-07-04] MEDS: Amlodipine 10 MG TAB PO SCH (09:01)
[2017-07-04] MEDS: fentaNYL Citrate/PF 2,000 MCG in Sodium Chloride 0.9% 60 ML IV PRN (09:51)
--- NOTE | 2017-07-04 10:28 | PDOC.GSOPN ---
General Surgery Procedure Note - Operative Note Date: 07/02/17 Pre-op diagnosis: axillary abscess Post-op diagnosis: same Procedure: I&D axillary abscess Findings: gross purulence Implants: none Anesthesia: other (General) Surgeon: Bryson Looney Estimated blood loss: 0 Pathology: other (cultures sent) Condition: stable - Description of Procedure Details: After general anesthesia, the right axilla is prepped and draped in a sterile fashion. Skin over the lateral abscess is opened and debrided. The lateral abscess communicates with a medial area of swelling. Second incision is made medially. Copious amounts of purulence is evacuated and cultures taken. All loculations broken up. Hemostasis is obtained. Wound vac is placed. Patient to recovery stable.
--- NOTE | 2017-07-04 10:42 | HP ---
DATE OF ADMISSION: 07/02/2017 CHIEF COMPLAINT: Right axillary abscess. BRIEF HISTORY OF PRESENT ILLNESS: This is a 52-year-old male with a history of diabetes mellitus who presents with nonhealing wound to the right proximal arm. He has had this for a few weeks. He has been on different courses of antibiotics, he had some more swelling medial to this and that was descr ibed as lymphadenopathy. Dr. Koch saw him in the office yesterday and put him on for me today for a xillary I&D under anesthetic. This is a large area, it would be quite painful to do in the office. PAST MEDICAL HISTORY: Hypertension, diabetes mellitus, chronic pain, hyperlipidemia, adrenal insuffi ciency. PAST SURGICAL HISTORY: He denies. MEDICINES TAKEN DAILY: Include Lipitor, Farxiga, metformin, metoprolol, amlodipine. ALLERGIES: No known drug allergies. SOCIAL HISTORY: He is a smoker. No alcohol or drugs. REVIEW OF SYSTEMS: Otherwise, negative. PHYSICAL EXAMINATION: VITAL SIGNS: No acute distress. HEENT: Sclerae are anicteric. Oropharynx clear. NECK: No lymphadenopathy. CHEST: Clear. HEART: Regular rate and rhythm. ABDOMEN: Soft, nontender. EXTREMITIES: Right upper extremity reveals good pulses. No limb-threatening ischemia. A 6 x 8 cm a bscess right arm with fluctuance. There is larger area just medial, there is purulent drainage. ASSESSMENT: 1. Axillary abscess. 2. Diabetes mellitus. 3. Hypertension. 4. Hyperlipidemia. 5. Chronic steroid use. PLAN: I&D in the operating room followed by admission for wound VAC. He will need a home VAC, posto p wound VAC for this to facilitate wound healing.
--- NOTE | 2017-07-04 12:17 | PQF ---
CLINICAL DOCUMENTATION IMPROVEMENT CLARIFICATION FORM: ICD-10 Updated PLEASE DO AN ADDENDUM TO THE PROGRESS NOTE WITH ANY DOCUMENTATION UPDATES OR ADDITIONS AND CARRY THROUGH TO DC SUMMARY. THANK YOU. DATE: 07/04 ATTN: DR. ROSAS Please exercise your independent, professional judgment in responding to the clarification form. Clinical indicators are provided on the bottom of this form for your review Please check appropriate box(s): [ ] Excisional Debridement: [ ] Excised [ ] Cut away [ ] Other: Depth / layer: (deepest layer of debridement): [ ] Skin[ ] Sub Q Tissue [ ] Fascia [ ] Muscle [ ] Tendon [ ] Bone Appearance of wound: (e.g., down to fresh bleeding tissue, etc.)___ Margins: (please specify): / x x Instruments used: [ ] Scissors [ ] Scalpel [ ] Curette [ ] Soft tissue clipper [ ] Other: [ ] Non-excisional Debridement: (Removal by brushing, chemical, or washing) [X ] Incision and Drainage only (No Debridement): Depth: [ X ] Skin [ X] Sub Q [ ] Into soft tissue [ ] Other procedure diagnosis [ ] Unable to determine For continuity of documentation, please document condition throughout progress notes and discharge summary. Thank You. CLINICAL INDICATORS - SIGNS / SYMPTOMS / LABS OP REPORT 07/02: SKIN OVER THE LATERAL ABSCESS IS OPENED & DEBRIDED RISK FACTOR: R AXILLA ABSCESS (STAPH AUREUS) DM II ADRENAL INSUFFICIENCY TREATMENTS: I&D AXILLARY ABSCESS IV ANTIBIOTIC (VANCOMYCIN 07/02 - PRESENT) WOUND VAC THANK YOU! Mariana (This form is maintained as a part of the permanent medical record) 2014 [employer]. All Rights Reserved Mariana Edmonds RN, BSN [email or web address] Office: [phone] [facility]
[2017-07-04] MEDS: HumaLOG 300 UNITS/3 ML VIAL SC PRN ×2 (13:10→18:03)
[2017-07-04 15:58] LABS: Vancomycin, Trough 20.8 ug/mL
[2017-07-04] MEDS: methylPREDNISolone 4 mg Tablet PO SCH (16:15)
--- NOTE | 2017-07-04 19:35 | DIS ---
DATE OF ADMISSION: 07/02/2017 DATE OF DISCHARGE: 07/04/2017 ADMITTING DIAGNOSES: Right axillary abscess, diabetes, hypertension. DISCHARGE DIAGNOSES: Right axillary abscess, diabetes, hypertension. PROCEDURES: I&D right axillary abscess by Dr. Looney without complication. CONDITION AT DISCHARGE: Improved. STAFF: Dr. Looney. HOSPITAL COURSE: The patient was admitted for wound care, had wound VAC changed on 07/04/2017, did w ell, sent home on [place] and his other medicines were all the same.
[2017-07-04] MEDS: Atorvastatin Calcium 10 MG TAB PO SCH (21:01)
[2017-07-05] MEDS: Vancomycin HCl 1.5 GM in Sodium Chloride 0.9% 250 ML 300 ML IVPB SCH (08:12)
[2017-07-05] MEDS: Amlodipine 10 MG TAB PO SCH (08:15)
[2017-07-05] MEDS: Metoprolol Tartrate 50 MG TAB PO SCH (08:16)
[2017-07-05] MEDS: Folic Acid 1 MG TAB PO SCH (08:16)
[2017-07-05] MEDS: Famotidine 20 MG TAB PO SCH (08:16)
[2017-07-05 08:26] VITALS: TEMP 98.2
[2017-07-05] MEDS ORDERED: HYDROcodone/Acetaminophen 10/325 mg Tablet PO PRN ×2 (12:24)
--- NOTE | 2017-07-05 13:15 | PDOC.GSPN ---
Surgery Progress Note: Subj - Subjective Patient reports: no new complaints Surgery Progress Note: Obj - Vital signs Vital signs: Vital Signs - Most Recent Temp Pulse Resp BP Pulse Ox 98.2 F 101 H 20 138/86 97 07/05/17 08:00 07/05/17 08:15 07/05/17 08:00 07/05/17 08:15 07/05/17 08:00 - Physical Exam General: no distress Cardiovascular: regular rate and rhythm Respiratory: clear to auscultation Wound: wound vac Surgery Progress Note: Results - Labs Lab results: Laboratory Results - last 24 hr 07/05/17 11:41 POC Glucose 200 H Surgery Progress Note: A/P - Problem (1) Axillary abscess Current Visit: Yes Code(s): L02.419 - CUTANEOUS ABSCESS OF LIMB, UNSPECIFIED Status: Acute Assessment and Plan: Await home vac to be approved. Rx for norco sent to his pharmacy already. He will continue clindamycin at home after DC (2) Diabetes mellitus Current Visit: Yes Code(s): E11.9 - TYPE 2 DIABETES MELLITUS WITHOUT COMPLICATIONS Status: Acute
[2017-07-05] MEDS: methylPREDNISolone 4 mg Tablet PO SCH (15:31)
[2017-07-05 16:13] VITALS: BP 165/94
--- NOTE | 2017-07-05 16:49 | DIS ---
DATE OF ADMISSION: 07/02/2017 DATE OF DISCHARGE: 07/05/2017 ADMISSION DIAGNOSES: Right axillary abscess, diabetes mellitus. DISCHARGE DIAGNOSES: Right axillary abscess, diabetes mellitus. PROCEDURES: Incision and drainage of right axilla by Dr. Looney without complication. CONDITION AT DISCHARGE: Improved. HOSPITAL COURSE: The patient admitted for postoperative with wound VAC. He had ON [employer] for pain control . He was on vancomycin and transitioned over to clindamycin on discharge, he already has a prescript ion at home. Home health setup for wound VAC changes. He will follow up with me in 2 weeks for woun d check. Used up all other medicines before discharge.
[2017-07-05] MEDS ORDERED: Clindamycin 150 MG CAP PO SCH (21:00)
== END 2017-07-05 16:30 | disposition home or self-care (01) | DRG 580 ==
LOC: SDC 07:06 → SURG A 09:26
PROVIDERS: ADMIT Surgery; ATTEND Surgery
PROC: 0J9D0ZZ Drainage of Right Upper Arm Subcutaneous Tissue and Fascia, Open Approach (ICD-10-PCS; principal; 2017-07-02)
DX: L02.411 Cutaneous abscess of right axilla (principal); E27.40 Unspecified adrenocortical insufficiency; E11.9 Type 2 diabetes mellitus without complications; G89.29 Other chronic pain; E78.5 Hyperlipidemia, unspecified; I10 Essential (primary) hypertension; F17.210 Nicotine dependence, cigarettes, uncomplicated; Z79.84 Long term (current) use of oral hypoglycemic drugs; Z79.899 Other long term (current) drug therapy
CPT/HCPCS: 36415; 36416; 80202; 87070; 87186; 87205; 93005; 93010; J0360; J1720; J1885; J2001; J2405; J2550; J2704; J3010; J3370; J7050

== ENCOUNTER 2017-08-14 14:54 | Outpatient (CLI) | payer BC | END 2017-08-14 14:55 | disposition home or self-care (01) | LOC: BICRAD 14:54 | PROVIDERS: ATTEND Internal Medicine Rheumatology | DX: M31.0 Hypersensitivity angiitis (principal) | CPT/HCPCS: 71046 ==

== ENCOUNTER 2017-09-23 12:34 | Outpatient (CLI) | payer BC | END 2017-09-23 12:35 | disposition home or self-care (01) | LOC: BICCT 12:34 | PROVIDERS: ATTEND Internal Medicine Rheumatology | DX: I77.6 Arteritis, unspecified; Z13.820 Encounter for screening for osteoporosis; J43.8 Other emphysema | CPT/HCPCS: 71250; 77080 ==

== ENCOUNTER 2020-01-14 11:09 | Emergency (ER) | payer BC | END 2020-01-14 12:37 | disposition home or self-care (01) | LOC: ERS 11:09 | DX: I10 Essential (primary) hypertension (principal); E11.9 Type 2 diabetes mellitus without complications; E78.5 Hyperlipidemia, unspecified; F32.9 Major depressive disorder, single episode, unspecified; F17.210 Nicotine dependence, cigarettes, uncomplicated; Z79.84 Long term (current) use of oral hypoglycemic drugs; Z79.899 Other long term (current) drug therapy | CPT/HCPCS: 99283 ==

== ENCOUNTER 2022-04-13 11:40 | Emergency (ER) | payer BC, OTHER ==
[2022-04-13] MEDS ORDERED: Ketorolac Tromethamine 30 MG/ML VIAL ONE (12:31)
== END 2022-04-13 14:00 | disposition home or self-care (01) ==
LOC: ERS 11:40
DX: M54.50 Low back pain, unspecified (principal); M54.6 Pain in thoracic spine; M54.2 Cervicalgia; E11.9 Type 2 diabetes mellitus without complications; E78.5 Hyperlipidemia, unspecified; I10 Essential (primary) hypertension; F17.210 Nicotine dependence, cigarettes, uncomplicated; Z79.899 Other long term (current) drug therapy
CPT/HCPCS: 72125; 72128; 72131; 96372; J1885